=== PATIENT | male | born 1960 | race Caucasian/White ===

== ENCOUNTER 2016-08-10 16:24 | Emergency (ER) | payer SELFPAY ==
[~2016-08-10] VITALS: Ht 180.3 cm; Wt 81.8 kg
[2016-08-10 16:26] VITALS: Ht 180.3 cm; Wt 81.8 kg
== END 2016-08-10 19:11 | disposition left against medical advice (07) ==
LOC: E/R 16:24
DX: Z53.21 Procedure and treatment not carried out due to patient leaving prior to being seen by health care provider (principal)